=== PATIENT | male | born 1965 | race Caucasian/White ===

== ENCOUNTER → 2022-05-18 | Outpatient (CLI) | payer BC ==
--- NOTE | 2022-05-19 06:05 | MR ---
EXAMINATION TYPE: MR elbow RT wo/w con DATE OF EXAM: 05/18/2022 COMPARISON: None HISTORY: Olecranon bursitis, right elbow. CONTRAST: Standard multiplanar, multisequence MRI departmental protocol images were obtained without contrast a nd with 8.5 mL intravenous Gadavist gadolinium contrast. There is elbow joint effusion. The triceps tendon is intact. There is thickening and increased signal in the biceps tendon at the attachment on the radial tubercle. There is increased fluid signal aroun d the biceps tendon. The brachialis tendon appears intact. The brachialis muscle appears intact. No e vidence of a fracture. The collateral ligaments appear intact. There is no evidence of pathologic enh ancement. IMPRESSION: Elbow joint effusion. Biceps tendon tear with thickening and increased signal at the radial tubercle. No fracture seen.
== END | disposition home or self-care (01) ==
LOC: RADMRIMAIN 15:52
PROVIDERS: ATTEND Orthopaedic Surgery Hand Surgery
DX: S46.211A Strain of muscle, fascia and tendon of other parts of biceps, right arm, initial encounter (principal); M70.21 Olecranon bursitis, right elbow; M25.471 Effusion, right ankle; G56.31 Lesion of radial nerve, right upper limb; G56.01 Carpal tunnel syndrome, right upper limb; Z48.89 Encounter for other specified surgical aftercare
CPT/HCPCS: 73223; A9585

== ENCOUNTER 2022-05-31 06:39 | Day surgery (SDC) | payer BC ==
[2022-05-30 10:52] VITALS: BMI 26.7
[2022-05-31 07:04] VITALS: TEMP 97.2
[2022-05-31] MEDS: LACTATED RINGERS 1,000 ML IV SCH ×2 (07:15→07:26)
[2022-05-31] MEDS ORDERED: ONDANSETRON 4 MG/2 ML VIAL ONE (07:18)
[2022-05-31] MEDS ORDERED: PROPOFOL 10 MG/ML 20 ML VIAL IV ONE (07:30)
[2022-05-31] MEDS ORDERED: LIDOCAINE 2% INJ 20 MG/ML (2 ML VIAL) ONE (07:30)
--- NOTE | 2022-05-31 07:53 | P.PCN ---
Date of Procedure: 05/31/22 Procedure(s) Performed: Brief history: Patient is a pleasant 56-year-old male scheduled for an elective upper endoscopy as well as colonoscopy as a part of evaluation of epigastric pain/intermittent heartburn, chronic diarrhea and screening for colon cancer. Procedure performed: Esophagogastroduodenoscopy with biopsy. Colonoscopy with biopsy Preoperative diagnosis: Epigastric pain/GERD/chronic diarrhea Screening for colon cancer Anesthesia: MAC Procedure: After informed consent was obtained from the patient was brought into the endoscopy unit and IV sedation was administered by anesthesia under continuous monitoring. Initially upper endoscopy was done. The Olympus GF 160 video endoscope was inserted inserted into the mouth and esophagus intubated without any difficulty and was gradually advanced into the stomach and duodenum and carefully examined. The bulb and second part of the duodenum appeared normal. The scope was then withdrawn into the stomach adequately insufflated with air and upon careful examination the antrum had mild gastritis and biopsies were done from this area. Mucosa of the body, cardia and fundus appeared normal. The scope was then withdrawn into the esophagus. The GE junction was located at 40 cm to the incisors. It appeared regular with 2 superficial erosions consistent with LA grade a reflux esophagitis. Biopsies were done from the duodenum to rule out celiac disease. Rest of the esophagus appeared normal. Patient tolerated the procedure well. At this time the patient continued to remain sedation. Initial digital rectal examination was normal. Olympus CF 160 video colonoscope was then inserted into the rectum and gradually advanced to the cecum without any difficulty. Careful examination was performed as the scope was gradually being withdrawn. The prep was excellent. The cecum, ascending colon, transverse colon, descending colon appeared normal. The sigmoid: There was a 3 mm polyp that was removed by cold biopsy. Rest of the, sigmoid colon and rectum appeared normal. Random biopsies were done from the ascending and descending colon to rule out microscopic/collagenous colitis. Retroflexion was performed in the rectum and small internal hemorrhoids were noted. Patient tolerated the procedure well. Impression: 1. Upper endoscopy revealed small hiatal hernia, LA grade a reflux esophagitis and mild antral gastritis 2. Colonoscopy revealed a 3 mm; polyp status post cold biopsy and small internal hemorrhoids Recommendations: Findings of this examination were discussed with the patient as well as his family. He was advised to follow with the biopsy results. If the biopsy results adenoma he can have a repeat colonoscopy in 5 years..
[2022-05-31 08:00] VITALS: RESP 16
[2022-05-31 08:13] VITALS: BP 106/63; PULSE 66
== END 2022-05-31 08:58 | disposition home or self-care (01) ==
LOC: ORWHC2ENDO 06:39
PROVIDERS: ATTEND Internal Medicine Gastroenterology
DX: Z12.11 Encounter for screening for malignant neoplasm of colon (principal); K21.00 Gastro-esophageal reflux disease with esophagitis, without bleeding; K52.9 Noninfective gastroenteritis and colitis, unspecified; E78.5 Hyperlipidemia, unspecified; K64.4 Residual hemorrhoidal skin tags; Z80.0 Family history of malignant neoplasm of digestive organs
CPT/HCPCS: 88305; 45380; 43239; J2405; J2704; J2001